=== PATIENT | male | born 1950 | race Caucasian/White ===

== ENCOUNTER 2017-10-26 06:56 | Emergency (ER) | payer MEDICARE, OTHER ==
[2017-10-26] MEDS ORDERED: NS(*) 0.9% 1000 ML BAG 1,000 ML IV ONE (07:34)
[2017-10-26] MEDS ORDERED: MULT1CAP59 PO (07:42)
[2017-10-26] MEDS ORDERED: GLUC100026 PO (07:42)
--- NOTE | 2017-10-26 07:52 | EKG ---
[place] [facility] [place] NAME: SARA DIA : [id number] MR: [id number] V: [id number] EXAM DATE: ORDERING PHYSICIAN: TOM STONE TECHNOLOGIST: DANNA Test Reason : SOB Blood Pressure : / mmHG Vent. Rate : 054 BPM Atrial Rate : 054 BPM P-R Int : 152 ms QRS Dur : 082 ms QT Int : 454 ms P-R-T Axes : 077 041 025 degrees QTc Int : 430 ms Sinus bradycardia Otherwise normal ECG Some baseline artifact No previous ECGs available Confirmed by QUANG GARDNER ([id number]) on 10/26/2017 2:41:49 PM Referred By: YANIRA Confirmed By:QUANG GARDNER
[2017-10-26 07:53] LABS: PLATELET COUNT, AUTOMATED 270 K/uL (150-450)
[2017-10-26] MEDS ORDERED: IOPAMIDOL 76% 100 ML INFUS BTL 100 ML ONE (08:25)
[2017-10-26] MEDS ORDERED: NS 0.9% 25 ML BAG 50 ML ONE (08:25)
--- NOTE | 2017-10-26 08:26 | RADIOLOGY IMAGING REPORT ---
FACILITY: [facility] PATIENT NAME: Jin Matrinez : 1950 MR: [id number] V: [id number] EXAM DATE: ORDERING PHYSICIAN: TOM STONE TECHNOLOGIST: Location: [facility] - [place] Patient: Jin Martinez : 1950 Visit/Account:[id number] Date of Sevice: 10/26/2017 Exam type: CHEST PA AND LAT History: Shortness of breath, history of smoking Comparison: None. Findings: The lungs are free of acute effusions, infiltrates or edema. No evidence of a pneumothorax or pneumo mediastinum. Small amount linear stranding the right mid to lower lung field. The cardiac silhouett e is normal in size. The trachea is in midline. IMPRESSION: 1. Small amount linear stranding in the right mid to lower lung field which may represent scarring v ersus atelectasis Report Dictated By: Marlee Grewal MD at 10/26/2017 8:20 AM Report E-Signed By: Marlee Grewal MD at 10/26/2017 8:22 AM WSN:[id number]
[2017-10-26] MEDS ORDERED: ONDANSETRON 4 MG/2 ML VIAL ONE (08:45)
--- NOTE | 2017-10-26 09:28 | RADIOLOGY IMAGING REPORT ---
FACILITY: [facility] PATIENT NAME: Jin Martinez : 1950 MR: [id number] V: [id number] EXAM DATE: ORDERING PHYSICIAN: TOM STONE TECHNOLOGIST: Location: [facility] [place] Patient: Jin Martinez : 1950 Visit/Account:[id number] Date of Sevice: 10/26/2017 CTA CHEST WW/O CNTR (PULM ANG) COMPARISON: None. HISTORY: Shortness of breath, difficulty breathing. TECHNIQUE: Axial CT angiography of the chest with intravenous contrast. Coronal and sagittal reform ats. Coronal MIP reconstructions were also created for further evaluation and interpretation. One of the following dose optimization techniques was utilized in the performance of this exam: auto mated exposure control; adjustment of the mA and/or kV according to patient size; or use of iterative reconstruction technique. Specific details can be referenced in the facility's radiology CT exam op erational policy. CONTRAST: 75 mL of IV Isovue-370. CT CHEST FINDINGS: CARDIAC: Moderate three-vessel coronary artery calcifications. MEDIASTINUM/RAÚL: No significantly enlarged mediastinal lymph nodes. Mildly enlarged right hilar nod e short axis diameter of 1.2 cm on image 139. Prominent but subcentimeter size left hilar nodes. VASCULATURE: Adequate pulmonary artery opacification. There is no evidence of acute pulmonary emboli sm to the segmental level. No significant contrast in the aorta, as expected. There is streak artifac t causing artifactual low density across a pulmonary vein in the right upper lobe related to dense co ntrast in the SVC. CHEST WALL: Unremarkable. No mass or axillary adenopathy. LUNGS/PLEURA: Mild paraseptal and to a lesser degree centrilobular emphysema. Mild expected dependen t atelectasis. Noncalcified, circumscribed and smoothly marginated right lower lobe nodule abutting t he major fissure measuring 1.2 x 1.3 cm on series 4 image 160. Occasional 2 mm nodules, for example l eft lower lobe series 459, left upper lobe image 105, right upper lobe image 152, right upper lobe an d manage 166. BONES: Mild thoracic spine endplate spurring and vacuum disc. No concerning bone lesions. No acute f ractures. LIMITED ABDOMEN: Mild splenic artery calcifications. OTHER: Negative. IMPRESSION: 1. There is no evidence of acute pulmonary embolus to the segmental arterial level. 2. No acute-appearing pulmonary findings. 3. Mild centrilobular and paraseptal emphysema. 4. 1.3 cm right lower lobe nodule which is indeterminate for malignancy. Additional scattered 2 mm n odules. Follow-up options include a three-month follow-up chest CT or PET/CT. 5. Moderate three-vessel coronary artery calcifications. 6. Mildly enlarged right hilar lymph node. Report Dictated By: Bandar Yun at 10/26/2017 9:12 AM Report E-Signed By: Bandar Yun at 10/26/2017 9:24 AM WSN:[id number]
[2017-10-26] MEDS ORDERED: ALBUTEROL/IPRATROPIUM 3 ML NEB NEB ONE (09:45)
--- NOTE | 2017-10-26 09:52 | ER Report ---
History and Physical Time Seen By MD: 07:10 Hx. of Stated Complaint: pt started feeling short of breath last night. he called ems, they came and checked him out. he states they told him he wasnt having a heart attack but that his blood pressure was high and concerning. pt still feels short of breath now, denies chest pain. pt had a recent achilles tendon repair. HPI/ROS 67-year-old male with a history of daily cigarette use. He presents to the emergency department with multiple episodes in the past 24 hours of transient shortness of breath. He denies chest pain. He was on a motorcycle trip with some friends from [place]. He arrived in [place] approximately 2-3 days ago. He states his take in many [place] the [place], and has not had problems with shortness of breath at altitude. However does mention that he had surgery on his Achilles tendon in March 2017, and states he does feel more deconditioning than usual. He is also had a cough and eye symptoms for the past 1-2 weeks. No fever or chills. No previous PE or DVT. States that his symptoms are worse at night when he is in a hotel room that is warm and dry. Says he feels better when he is in the fissure. Was able to walk approximately 8 miles yesterday without chest pain or shortness of breath. Remainder of the 14 system rev: Yes Allergies: Coded Allergies: tramadol (Verified Allergy, Intermediate, rash , 10/26/17) Home Meds Reported Medications Multivitamin (MULTIVITAMINS) 1 Each Capsule, 1 EACH PO DAILY, CAPSULE 10/26/17 Glucosamine Sulfate 2KCL (GLUCOSAMINE) 1,000 Mg Tablet, 1000 MG PO DAILY 10/26/17 Reviewed Nurses Notes: Yes Old Medical Records Reviewed: Yes Hx Smoking: Yes Smoking Status: Current: Every Day Smoker Hx Substance Use Disorder: No Hx Alcohol Use: No Constitutional Vital Sign - Last 24 Hours 10/26/17 10/26/17 10/26/17 10/26/17 06:56 07:00 07:01 07:11 Temp 97.7 Pulse ??? 57 57 Resp 18 B/P (MAP) 168/97 168/97 (120) Pulse Ox 91 93 O2 Delivery Room Air 8/2/18 8/2/18 8/2/18 8/2/18 07:15 07:26 07:30 07:35 Pulse 53 60 B/P (MAP) 144/94 (111) 140/108 (119) Pulse Ox 95 95 10/26/17 10/26/17 10/26/17 10/26/17 07:43 07:43 07:45 07:50 Pulse 54 54 Resp 18 B/P (MAP) 153/97 (115) Pulse Ox 96 96 O2 Delivery Room Air 10/26/17 10/26/17 08:15 08:20 Pulse 53 B/P (MAP) 177/113 (134) Pulse Ox 94 Physical Exam General Appearance: The patient is alert, has no immediate need for airway protection and no current signs of toxicity. Eyes: Pupils equal and round no injection. Respiratory: Chest is non tender, lungs are clear to auscultation. Cardiac: regular rate and rhythm Gastrointestinal: Abdomen is soft and non tender, no masses, bowel sounds normal. Extremities have full range of motion and are non tender. Skin: No rashes or lesions. DIFFERENTIAL DIAGNOSIS: After history and physical exam differential diagnosis was considered for shortness of breath including but not limited to pulmonary infectious process, COPD, asthma, pulmonary embolus and congestive heart failure. Medical Decision Making Data Points Result Diagram: 10/26/17 0708 10/26/17 0708 Laboratory Hematology Test 10/26/17 07:08 10/26/17 08:58 Red Blood Count 4.93 M/uL (4.00-5.60) Mean Corpuscular Volume 88.5 fL (80.0-96.0) Mean Corpuscular Hemoglobin 31.1 pg (26.0-33.0) Mean Corpuscular Hemoglobin Concent 35.2 g/dL (32.0-36.0) Red Cell Distribution Width 13.6 % (11.5-14.5) Mean Platelet Volume 8.2 fL (7.2-11.1) Neutrophils (%) (Auto) 64.1 % (39.4-72.5) Lymphocytes (%) (Auto) 24.3 % (17.6-49.6) Monocytes (%) (Auto) 8.4 % (4.1-12.4) Eosinophils (%) (Auto) 2.7 % (0.4-6.7) Basophils (%) (Auto) 0.5 % (0.3-1.4) Nucleated RBC Relative Count (auto) 0.1 /100WBC Neutrophils # (Auto) 4.6 K/uL (2.0-7.4) Lymphocytes # (Auto) 1.8 K/uL (1.3-3.6) Monocytes # (Auto) 0.6 K/uL (0.3-1.0) Eosinophils # (Auto) 0.2 K/uL (0.0-0.5) Basophils # (Auto) 0.0 K/uL (0.0-0.1) Nucleated RBC Absolute Count (auto) 0.01 K/uL D-Dimer Quantitative (PE/DVT) 2.06 ug/ml (0-0.50) Sodium Level 143 mmol/L (137-145) Potassium Level 4.1 mmol/L (3.5-5.0) Chloride Level 105 mmol/L (98-107) Carbon Dioxide Level 27 mmol/L (22-30) Blood Urea Nitrogen 12 mg/dl (9-21) Creatinine 0.90 mg/dl (0.66-1.25) Glomerular Filtration Rate Calc > 60.0 Random Glucose 107 mg/dl (75-110) Calcium Level 9.6 mg/dl (8.4-10.2) Total Bilirubin 0.5 mg/dl (0.2-1.3) Aspartate Amino Transf (AST/SGOT) 30 U/L (0-35) Alanine Aminotransferase (ALT/SGPT) 27 U/L (0-56) Alkaline Phosphatase 69 U/L (0-126) Total Protein 8.0 g/dl (6.3-8.2) Albumin 4.7 g/dl (3.5-5.0) Troponin I 0.048 ng/ml Chemistry Test 10/26/17 07:08 10/26/17 08:58 White Blood Count 7.2 k/uL (4.5-11.0) Red Blood Count 4.93 M/uL (4.00-5.60) Hemoglobin 15.3 g/dL (14.0-18.0) Hematocrit 43.6 % (42.0-52.0) Mean Corpuscular Volume 88.5 fL (80.0-96.0) Mean Corpuscular Hemoglobin 31.1 pg (26.0-33.0) Mean Corpuscular Hemoglobin Concent 35.2 g/dL (32.0-36.0) Red Cell Distribution Width 13.6 % (11.5-14.5) Platelet Count 270 K/uL (150-450) Mean Platelet Volume 8.2 fL (7.2-11.1) Neutrophils (%) (Auto) 64.1 % (39.4-72.5) Lymphocytes (%) (Auto) 24.3 % (17.6-49.6) Monocytes (%) (Auto) 8.4 % (4.1-12.4) Eosinophils (%) (Auto) 2.7 % (0.4-6.7) Basophils (%) (Auto) 0.5 % (0.3-1.4) Nucleated RBC Relative Count (auto) 0.1 /100WBC Neutrophils # (Auto) 4.6 K/uL (2.0-7.4) Lymphocytes # (Auto) 1.8 K/uL (1.3-3.6) Monocytes # (Auto) 0.6 K/uL (0.3-1.0) Eosinophils # (Auto) 0.2 K/uL (0.0-0.5) Basophils # (Auto) 0.0 K/uL (0.0-0.1) Nucleated RBC Absolute Count (auto) 0.01 K/uL D-Dimer Quantitative (PE/DVT) 2.06 ug/ml (0-0.50) Glomerular Filtration Rate Calc > 60.0 Calcium Level 9.6 mg/dl (8.4-10.2) Total Bilirubin 0.5 mg/dl (0.2-1.3) Aspartate Amino Transf (AST/SGOT) 30 U/L (0-35) Alanine Aminotransferase (ALT/SGPT) 27 U/L (0-56) Alkaline Phosphatase 69 U/L (0-126) Total Protein 8.0 g/dl (6.3-8.2) Albumin 4.7 g/dl (3.5-5.0) Troponin I 0.048 ng/ml Coagulation Test 10/26/17 07:08 D-Dimer Quantitative (PE/DVT) 2.06 ug/ml EKG/Imaging EKG Interpretation 12 lead EKG: Rhythm: normal sinus rhythm [place]: normal QRS: normal ST segments: normal Imaging X-ray: CXR was obtained. I viewed the images myself on the PACS system. My interpretation of the images is: no infiltrate, no edema, no cardiomegaly. The radiologist interpretation had no clinically significant variation from this interpretation. Results: CT scan of the CTA was obtained. The results of the study are no PE, multiple non specific nodules. The study was read by the radiologist. I viewed the images myself on the PACS system. ED Course/Re-evaluation ED Course 67-year-old male who is a daily cigarette smoker and has been in [place] for 2 days on a motorcycle trip from [place]. Presents to the ED with multiple transient episodes of shortness of breath. No chest pain. His EKG is unremarkable. A chest x-ray shows no evidence of pulmonary edema or infiltrate. A CTA of the chest was obtained due to an elevated d-dimer. The CT scan shows multiple concerning nodules in the setting of a cigarette smoker. I discussed this with the patient at length, and gave him a disc imaging as well as a printed copy of the formal radiology read of the CT scan. He will follow-up with his primary care doctor back in [place]. In the meantime I think his episodes of shortness of breath or combination of altitude and URI symptoms that he has had for the past few weeks. I do not think this is ACS, PE, infection, or congestive heart failure. I gave him 1 dose of Decadron for symptomatic relief. Return to the emergency department if his symptoms worsen and otherwise follow up with his primary care physician. Decision to Disposition Date: Oct 26, 2017 Decision to Disposition Time: 09:56 Depart Departure Latest Vital Signs Vital Signs Date Time Temp Pulse Resp B/P (MAP) Pulse Ox O2 Delivery O2 Flow Rate FiO2 10/26/17 08:20 53 94 10/26/17 08:15 177/113 (134) 10/26/17 07:43 Room Air 10/26/17 07:43 18 10/26/17 07:00 97.7 Impression: Primary Impression: Shortness of breath associated with high altitude Condition: Improved Disposition: HOME OR SELF-CARE Patient Instructions: Dyspnea (ED) Problem Qualifiers Primary Impression: Shortness of breath associated with high altitude Encounter type: initial encounter Qualified Codes: T70.29XA - Other effects of high altitude, initial encounter TOM STONE MD Oct 26, 2017 09:52
[2017-10-26 09:53] VITALS: BP 149/94
[2017-10-26] MEDS ORDERED: DEXAMETHASONE 4 MG TAB PO ONE (09:55)
== END 2017-10-26 10:09 | disposition home or self-care (01) ==
LOC: ER 07:09
DX: T70.29XA Other effects of high altitude, initial encounter (principal); R06.02 Shortness of breath
CPT/HCPCS: 36415; 71046; 71275; 84484; 85025; 85379; 93005; 94640; 99284; J2405; J8540; Q9967; 82040; 82247; 82310; 82374; 82435; 82565; 82947; 84075; 84132; 84155; 84295; 84450; 84460; 84520